=== PATIENT | female | born 1990 | race African-American/Black ===

== ENCOUNTER 2023-07-28 00:03 | Emergency (ER) | payer OTHER ==
[~2023-07-28] VITALS: Ht 165.1 cm; Wt 63.5 kg
[2023-07-28] MEDS ORDERED: MELA3TAB41 PO (00:26)
[2023-07-28 00:59] VITALS: TEMP 98.3
[2023-07-28] MEDS ORDERED: diphenhydrAMINE HCL 50 MG/ML VIAL ONE (01:11)
[2023-07-28] MEDS ORDERED: KETOROLAC TROMETHAMINE 15 MG/ML VIAL ONE (01:11)
[2023-07-28] MEDS ORDERED: METOCLOPRAMIDE HCL 10 MG/2 ML VIAL ONE (01:11)
[2023-07-28] MEDS: METOCLOPRAMIDE HCL 10 MG/2 ML VIAL IV ONE (01:23)
[2023-07-28] MEDS: diphenhydrAMINE HCL 50 MG/ML VIAL IV ONE (01:23)
[2023-07-28] MEDS: IV NS 0.9% 1,000 ML BAG IV ONE (01:23)
[2023-07-28] MEDS: KETOROLAC TROMETHAMINE INJ 30 MG/ML VIAL IV ONE (01:23)
[2023-07-28] MEDS ORDERED: KETO10TA2 PO (03:13)
[2023-07-28 03:38] VITALS: BP 119/84; O2SAT 98
== END 2023-07-28 03:38 | disposition home or self-care (01) ==
LOC: ER 00:06
DX: G43.909 Migraine, unspecified, not intractable, without status migrainosus (principal)
CPT/HCPCS: 99284; 96374; 96375; 96361; J1200; J2765; J7030; J1885